=== PATIENT | male | born 1975 | race Caucasian/White ===

== ENCOUNTER 2022-04-29 07:27 | Outpatient (CLI) | payer OTHER, SELFPAY ==
[2022-04-29 09:42] LABS: Albumin* 4.2 g/dL (3.3-5.0); Chloride* 106 mmol/L (96-114)
[2022-04-29 09:43] LABS: Sodium* 140 mmol/L (135-149)
[2022-04-29 09:45] LABS: Aspartate Amino Transferase* 677 U/L (12-35); Blood Urea Nitrogen* 17 mg/dL (5-24); Carbon Dioxide* 27 mmol/L (20-32); Cholesterol* 172 mg/dL (90-199); Creatinine* 0.8 mg/dL (0.5-1.5); Estimated Glomerular Filt Rate 109 ml/min; Total Protein* 7.6 g/dL (6.0-8.3)
[2022-04-29 09:46] LABS: Alkaline Phosphatase* 187 U/L (40-150); Calcium* 9.3 mg/dL (8.4-10.6); Glucose* 110 mg/dL (60-115); HDL Cholesterol* 51 mg/dL (>=40); LDL Cholesterol Calculated 99 mg/dL (<100); Triglycerides* 112 mg/dL (40-149)
[2022-04-29 10:36] LABS: Alanine Aminotransferase* 1374 U/L (4-50)
== END 2022-04-29 07:28 | disposition home or self-care (01) ==
LOC: NFLDREF 07:28
PROVIDERS: PCP Family Medicine; Visit Provider Family Medicine
DX: E78.5 Hyperlipidemia, unspecified (principal)
CPT/HCPCS: 80053; 80061

== ENCOUNTER 2022-05-16 15:38 | Outpatient (CLI) | payer OTHER, SELFPAY ==
--- NOTE | 2022-05-16 16:00 | CRLHL7_ITS ---
For Patients: As a result of the Century Cures Act, medical imaging exams and procedure reports are released immediately into your electronic medical record. You may view this report before your referring provider. If you have questions, please contact your health care provider. Indication: abnormal LFTs Technique: Postcontrast CT abdomen and pelvis. 98 cc Isovue 370 intravenous contrast. Please note that all CT scans at this facility use dose modulation, iterative reconstruction, and/or weight-based dosing when appropriate to reduce radiation dose to as low as reasonably achievable. Comparison: None Findings: Lung bases are clear. No pleural effusion or infiltrate. Simple cyst within the right hepatic lobe measuring 1.3 cm. Additional cyst inferiorly within the right hepatic lobe measuring 1.4 cm. No suspicious intrahepatic mass. No stigmata of cirrhosis. Gallbladder normal. No calcified gallstones. No biliary obstruction. Pancreas is normal. Low-density structures within the anterior spleen are present measuring up to 1.2 cm compatible with hemangiomas or cysts. Spleen measures up to 13.1 cm. Normal adrenal glands. Simple cyst lower pole right kidney measures 2 centimeters. No hydronephrosis. Enlarged portal caval lymph node noted measuring 1.4 cm. Numerous mildly prominent upper mesenteric lymph nodes are present. Normal bladder. Prostate not enlarged. No bowel obstruction or free air. No free fluid or abscess. Normal appendix. Ureters are normal. Degenerative disc disease L5-S1. No fracture. Degenerative changes of both hips. Mildly prominent right external iliac lymph node measuring 1.2 cm. Impression: Mild upper abdominal adenopathy with numerous subcentimeter upper mesenteric lymph nodes along with a mildly prominent portal caval lymph node. Also there is a mildly prominent right external iliac chain lymph node. Mild splenomegaly also present measuring 13.1 cm. Incidental benign intrahepatic cysts. Please note that all CT scans at this facility use dose modulation, iterative reconstruction, and/or weight-based dosing when appropriate to reduce radiation dose to as low as reasonably achievable. Dictated by Ezra Osuna MD @ 05/17/2022 10:16:08 AM (Electronically Signed)
== END 2022-05-16 15:39 | disposition home or self-care (01) ==
LOC: CT 15:39
PROVIDERS: PCP Family Medicine; Visit Provider Family Medicine
DX: R79.89 Other specified abnormal findings of blood chemistry (principal); K76.89 Other specified diseases of liver; R59.0 Localized enlarged lymph nodes
CPT/HCPCS: 74177; Q9967

== ENCOUNTER 2022-05-21 14:34 | Outpatient (CLI) | payer OTHER, SELFPAY ==
[2022-05-21 15:44] VITALS: BP 116/66; PULSE 97; RESP 18
--- NOTE | 2022-05-21 16:44 | PM.ST ---
Stress Test Note Date Date Seen: 05/21/22 Date of test: 05/21/22 Providers Referring provider: Bobo Bird Primary care provider: Bobo Bird Stress test physician: Preston Jenkins Stress Test Note Stress test ordered: Stress Echo Indication for test: Chest pain Results discussion: Patient is seen and assessed, cardiac stress test medical history form is reviewed, patient accepts the risks benefits and side effects of this would like to proceed pretest pretest EKG shows normal sinus rhythm, with a ventricular rate of 71 and a blood pressure 100/62. No acute ST wave changes noted patient is exercised following the Petr protocol for a total time of 10 minutes 11 seconds, achieved a metabolic equivalent of 11.9 Mets. No chest pain, test is terminated because of fulfillment of protocol, during this test there is no ST wave changes suggestive ischemia, there is no dysrhythmias. Patient recovered normally during the recovery. Impression: Negative electrographic portion of stress echo Follow up suggested: Await echo images these will be read by Cardiology, follow-up with primary care suggested, patient exercised to a high level with no symptoms at all. He left this testing facility in excellent condition at baseline.
== END 2022-05-21 15:48 | disposition home or self-care (01) ==
LOC: STRESS 14:35
PROVIDERS: PCP Family Medicine; Visit Provider Family Medicine
DX: R07.9 Chest pain, unspecified (principal); Z82.49 Family history of ischemic heart disease and other diseases of the circulatory system
CPT/HCPCS: 93016; 93325; 93351

== ENCOUNTER 2022-06-12 16:04 | Outpatient (CLI) | payer OTHER, SELFPAY ==
[2022-06-12 17:59] LABS: Albumin* 4.3 g/dL (3.3-5.0); Chloride* 100 mmol/L (96-114)
[2022-06-12 18:00] LABS: Potassium* 4.7 mmol/L (3.6-5.1); Sodium* 138 mmol/L (135-149)
[2022-06-12 18:02] LABS: Aspartate Amino Transferase* 414 U/L (12-35); Bilirubin Total* 0.8 mg/dL (0.1-1.5); Carbon Dioxide* 29 mmol/L (20-32); Creatinine* 0.8 mg/dL (0.5-1.5); Estimated Glomerular Filt Rate 109 ml/min; Total Protein* 7.4 g/dL (6.0-8.3)
[2022-06-12 18:03] LABS: Alkaline Phosphatase* 104 U/L (40-150); Blood Urea Nitrogen* 14 mg/dL (5-24); Calcium* 9.2 mg/dL (8.4-10.6); Glucose* 81 mg/dL (60-115)
[2022-06-12 19:37] LABS: Alanine Aminotransferase* 995 U/L (4-50)
== END 2022-06-12 16:05 | disposition home or self-care (01) ==
LOC: NFLDREF 16:05
PROVIDERS: PCP Family Medicine; Visit Provider Family Medicine
DX: R59.0 Localized enlarged lymph nodes (principal); R79.89 Other specified abnormal findings of blood chemistry
CPT/HCPCS: 80053

== ENCOUNTER 2023-06-18 08:11 | Outpatient (CLI) | payer OTHER, SELFPAY | END 2023-06-18 08:12 | disposition home or self-care (01) | LOC: NFLDREF 06-20 10:32 | PROVIDERS: PCP Family Medicine; Referring Provider Family Medicine; Visit Provider Family Medicine | DX: Z00.00 Encounter for general adult medical examination without abnormal findings (principal); Z13.9 Encounter for screening, unspecified; Z13.6 Encounter for screening for cardiovascular disorders | CPT/HCPCS: 80053; 80061 ==

== ENCOUNTER 2024-02-19 12:23 | Outpatient (CLI) | payer OTHER, SELFPAY ==
--- OUTSIDE RECORDS SUMMARY | 2024-02-19 12:25 | XMS_ITS | Clinical Summary ---
Author Organization [employer] [facility] Address [place], [place] [address] Care Team Providers Care Audio/Video Technician Name Role Phone Bobo Bird MD Primary Care Provider Allergies Active Allergy Reactions Criticality Noted Date Comments Ragweed 04/30/2008 Medications Medication Sig Dispensed Refills Start Date End Date Status cetirizine (ZYRTEC) 10 mg tabletIndications:Seas onal allergies Take 1 tablet by mouth once daily. 0 04/30/2013 Active fluticasone (50 mcg per actuation) nasal solution (FLONASE)Indications:A llergic rhinitis, seasonal,Allergic rhinitis, cause unspecified SPRAY 2 PUFFS IN EACH NOSTRIL AT BEDTIME 16 g 0 05/01/2014 Active Active Problems Problem Noted Date Diagnosed Date Allergic rhinitis, cause unspecified 05/06/2010 Immunizations Name Administration Dates Next Due AMB Influenza, IIV3 (Age >=3 years)([facility]) 06/02/2013,06/08/2008 Social History Tobacco Use Types Packs/Day Years Used Date Smoking Tobacco: Never Smokeless Tobacco: Never Alcohol Use Standard Drinks/Week Comments Yes 0 (1 standard drink = 0.6 oz pur e alcohol) occas Social Connections Answer Date Recorded Frequency of Communication with Friends and Fami ly Not on file 08/04/2021 Financial Resource Strain Answer Date R ecorded Difficulty of Paying Living Expenses Not on file 08/04/2021 Difficulty of Paying Living Expenses Not on file 08/04/2021 Sex and Gender Information Value Date Recorded Sex Assigned at Not on file Gender Identity Not on file Sexual Orientation Not on file Obstetrics History Last Filed Vital Signs Vital Sign Reading Time Taken Comments Blood Pressure 125/75 09/10/2019 7:42 PM [employer] Pulse 70 09/10/2019 7:42 PM [employer] Temperature 36.8 ??C (98.2 ??F) 09/10/2019 7:42 PM CS T Respiratory Rate - - Oxygen Saturation 96% 09/10/2019 7:42 PM [employer] Inhaled Oxygen Concentration - - Weight 99.1 kg (218 lb 8 oz) 04/30/2013 7:37 AM CDT Height 188 cm (6' 2) 04/30/2013 7:37 AM CDT Body Mass Index 28.05 04/30/2013 7:37 AM CDT Plan of Treatment Health Maintenance Due Date Last Done Comments Tdap 1985 Depression screening for age 12+ 1986 HIV for age 15-65 1989 BMI (ht and wt on same day) for age 18+ 01/15/1992 Hepatitis C screening for ag e 18-79 01/15/1992 Tetanus booster 1994 Colonoscopy through age 75 2019 Lipids for age 45-75 2019 COVID-19 vaccine series (2022- season) 2023 10/26/2020, 09/28/2020 Zoster (shingles) series for age 50+ (1 of 2) 01/15/2024 Influenza for age 50-64 04/04/2024 06/02/20 13, 06/08/2008 Pneumococcal series for age 6-64 Aged Out No longer eligible b ased on patient's age to complete this topic Care Teams Audio/Video Technician Relationship Specialty Start Date End Date Bobo Bird MD [address] [place] [id number] PCP - General Family Practice 05/21/22
--- NOTE | 2024-02-19 13:33 | W.ANESCHARGE ---
Anesthesia Charges Start Date/Time Anesthesia Start Date: 02/19/24 Anesthesia Start Time: 14:03 Stop Date/Time Anesthesia Stop Date: 02/19/24 Anesthesia Stop Time: 14:32
--- NOTE | 2024-02-19 14:33 | W.ANESCHARGE ---
Anesthesia Charges Start Date/Time Anesthesia Start Date: 02/19/24 Anesthesia Start Time: 14:03 Stop Date/Time Anesthesia Stop Date: 02/19/24 Anesthesia Stop Time: 14:32
== END 2024-02-19 12:24 | disposition home or self-care (01) ==
LOC: OP CLINIC 12:23
PROVIDERS: PCP Family Medicine; Visit Provider Surgery
DX: Z12.11 Encounter for screening for malignant neoplasm of colon (principal); K63.5 Polyp of colon; K64.4 Residual hemorrhoidal skin tags
CPT/HCPCS: 00811; 45385; 88305; J2704

== ENCOUNTER 2024-06-30 08:05 | Outpatient (CLI) | payer OTHER, SELFPAY ==
--- OUTSIDE RECORDS SUMMARY | 2024-07-02 12:38 | XMS_ITS | Clinical Summary ---
Author Organization [facility] Address [place], [place] [address] Care Team Providers Care Bisque Ware Dipper Name Role Phone Bobo Bird MD Primary Care Provider [phone] Allergies Active Allergy Reactions Criticality Noted Date [...] Comments Blood Pressure 125/75 09/10/2019 7:42 PM [employer] Pulse 70 09/10/2019 7:42 PM [employer] Temperature 36.8 C (98.2 F) 09/10/2019 7:42 PM [employer] Respiratory Rate - - Oxygen Saturation 96% 09/10/2019 7:42 PM [employer] Inhaled Oxygen Concentration - - Weight 99.1 [...] 75 2019 Lipids for age 45-75 2019 Zoster (shingles) series for age 50+ (1 of 2) 01/15/2024 COVID-19 vaccine series (2023- season) 2024 10/26/2020, 09/28/2020 Influenza for age 50-64 04/04/2024 06/02/20 13, 06/08/2008 Pneumococcal series for age 6-64 Aged Out No longer eligible b ased on patient's age to complete this topic Care Teams Bisque Ware Dipper Relationship Specialty Start Date End Date Bobo Bird MD [address] [place] [phone] PCP - General Family Practice 05/21/22
== END 2024-06-30 08:06 | disposition home or self-care (01) ==
LOC: NFLDREF 07-02 12:37
PROVIDERS: PCP Family Medicine; Referring Provider Family Medicine; Visit Provider Family Medicine
DX: R79.89 Other specified abnormal findings of blood chemistry (principal); Z82.49 Family history of ischemic heart disease and other diseases of the circulatory system
CPT/HCPCS: 80053